=== PATIENT | female | born 1950 | race Hispanic/Latino ===

== ENCOUNTER 2016-12-11 17:29 | Emergency (ER) | payer OTHER ==
[2016-12-11 17:29] VITALS: BMI 37.8
[2016-12-11 17:36] VITALS: RESP 20; TEMP 98.1; O2SAT 100
[2016-12-11 18:06] LABS: RBC URINE < 1 /hpf (0-3); URINE BACTERIA RARE (<OCC); URINE BILIRUBIN NEGATIVE (NEGATIVE); URINE BLOOD NEGATIVE (NEGATIVE); URINE COLOR YELLOW (YELLOW); URINE GLUCOSE (UA) NEG (Normal); URINE KETONE NEGATIVE (NEGATIVE); URINE LEUKOCYTE ESTERASE NEG Leu/uL (Negative); URINE PROTEIN NEGATIVE (NEGATIVE); URINE UROBILINOGEN 0.2-1.0 mg/dL (0.2-1.0)
--- NOTE | 2016-12-11 18:08 | ED PDOC ---
HPI: Back Time Seen by Provider: 12/11/16 17:36 Chief Complaint (Nursing): Abdominal Pain Chief Complaint (Provider): Right Flank Pain History Per: Patient History/Exam Limitations: no limitations Onset/Duration Of Symptoms: Days (x1 week) Current Symptoms Are (Timing): Still Present Quality Of Discomfort: "Pain" (soreness) Severity: Moderate Associated Symptoms: Other (initially mild dysuria, today shortness of breath; no hematuria/frequency) Exacerbating Factor(s): Movement (w/certain movements of back) Additional Complaint(s): Bia Richardson is a 66 year old female, with a past medical history inclusive of HTN, hypercholesterolemia and type II diabetes, who presents to the ED on 12/11/16 for the evaluation of moderate right flank pain/soreness that she has experienced x1 week; worse with certain movements of her back. Associated dysuria also reported initially, though she denies hematuria, urinary frequency, fever, chills or GI symptoms. ED visit was prompted today after patient begun to experience shortness of breath. Patient was evaluated by her PMD for these complaints who had then prescribed her Cipro for possible kidney infection/UTI; taken with only mild improvement in pain. No prior history of kidney stones. Of note, patient also reports that she has been moving this past week, pain may possibly be related to a muscular/back strain. PMD: Teto Mustafa Past Medical History Reviewed: Historical Data, Nursing Documentation, Vital Signs Vital Signs: Last Vital Signs Temp 98.1 F 12/11/16 17:31 Pulse 99 H 12/11/16 17:31 Resp 20 12/11/16 17:31 BP 155/111 H 12/11/16 17:31 Pulse Ox 100 12/11/16 17:31 - Medical History PMH: Diabetes (type II), Diverticulitis, Gall Bladder Disease (cholecystectomy) , HTN, Hypercholesterolemia Denies: Deep Vein Thrombosis, Chronic Kidney Disease - Surgical History Surgical History: Cholecystectomy - Family History Family History: States: Unknown Family Hx - Home Medications Home Medications: Ambulatory Orders Medication Instructions Recorded Atorvastatin [Lipitor] 10 mg PO HS 06/29/16 Ranitidine HCl [Zantac] 150 mg PO DAILY 06/29/16 metFORMIN [glucOPHAGE] 500 mg PO BID 06/29/16 Lidocaine 5% [Lidoderm] 1 ea TD DAILY PRN #10 patch 12/11/16 traMADol [Ultram] 50 mg PO TID PRN 3 Days 12/11/16 - Allergies Allergies/Adverse Reactions: Allergies Allergy/AdvReac Type Severity Reaction Status Date / Time peanut Allergy RASH Verified 06/29/16 12:11 Sulfa (Sulfonamide Allergy RASH Verified 06/29/16 12:11 Antibiotics) latex AdvReac RASH Verified 06/29/16 12:11 apple juice Allergy RASH Uncoded 06/29/16 12:11 blueberries Allergy RASH Uncoded 06/29/16 12:11 raspberries Allergy RASH Uncoded 06/29/16 12:11 shellfish Allergy RASH Uncoded 06/29/16 12:11 strawberries Allergy RASH Uncoded 06/29/16 12:11 tuna Allergy RASH Uncoded 06/29/16 12:11 Review of Systems ROS Statement: Except As Marked, All Systems Reviewed And Found Negative Constitutional: Negative for: Fever, Chills Gastrointestinal: Negative for: Nausea, Vomiting, Abdominal Pain, Diarrhea Genitourinary Female: Positive for: Dysuria (initially). Negative for: Frequency, Hematuria Musculoskeletal: Positive for: Back Pain (right flank pain/soreness, worse w/ certain movements of back) Physical Exam - Reviewed Nursing Documentation Reviewed: Yes Vital Signs Reviewed: Yes - Physical Exam Appears: Positive for: Non-toxic, In Acute Distress (minimal painful distress) Head Exam: Positive for: ATRAUMATIC, NORMOCEPHALIC Skin: Positive for: Normal Color, Warm, Dry, Rash (isolated 3.0cm x 2.0cm irregular, erythematous/macuopapular rash noted on skin of lower fold of right flank; patient denies pain at site) Neck: Positive for: Normal, Painless ROM, Supple Cardiovascular/Chest: Positive for: Regular Rate, Rhythm, Edema (trace b/l LE). Negative for: Murmur Respiratory: Positive for: Normal Breath Sounds. Negative for: Respiratory Distress Gastrointestinal/Abdominal: Positive for: Soft, Other (abdomen is protuberant/ obese). Negative for: Tenderness, Mass, Guarding, Rebound Back: Positive for: Other (mild tenderness to right paraspinal/thoracic region to deep palpation). Negative for: L CVA Tenderness, R CVA Tenderness Extremity: Positive for: Normal ROM Neurologic/Psych: Positive for: Alert, Oriented - Laboratory Results Result Diagrams: 12/11/16 18:09 12/11/16 18:09 Urine dip results: Negative for: Leukocyte Esterase, Blood, Nitrate, Ketones, Glucose, Bilirubin, Protein - ECG O2 Sat by Pulse Oximetry: 100 (RA) Pulse Ox Interpretation: Normal - CT Scan/US CT A/P w/o contrast Other Rad Studies (CT/US): Read By Radiologist, Radiology Report Reviewed Other Rad Interpretation: see MDM Medical Decision Making Medical Decision Makin:36 Initial Impression: right flank pain Differential diagnoses include but are not limited to kidney stone, pyelonephritis. Patient is hypertensive in ED (155/117) with mildly elevated pulse. Initial Plan: * CT A/P w/o contrast * Labs * BNP * Magnesium * Phosphorus * Troponin I * D-Dimer * Glucose/Blood/POC * Urinalysis * Urine Culture * Reevaluation 19:37 CT A/P report reviewed: FINDINGS: Lower thorax: No acute findings. ABDOMEN: Liver: There is fatty infiltration of the liver. Gallbladder and bile ducts: Unremarkable. No calcified stones. No ductal dilation. Pancreas: Unremarkable. No ductal dilation. Spleen: Unremarkable. No splenomegaly. Adrenals: Unremarkable. No mass. Kidneys and ureters: Unremarkable. No obstructing stones. No hydronephrosis. Stomach and bowel: Surgical sutures are noted in the sigmoid colon. There is mild localized dilatation of the sigmoid colon loop adjacent to the sutures, as described at the report of CT dated 10/23/2016 No mucosal thickening. Appendix: No findings to suggest acute appendicitis. PELVIS: Bladder: Unremarkable. No stones. Reproductive: Unremarkable as visualized. ABDOMEN and PELVIS: Intraperitoneal space: Unremarkable. No free air. No significant fluid collection Bones/joints: No acute fracture. No dislocation. Soft tissues: There is new moderate left lower quadrant abdominal wall hernia containing fat. Vasculature: Unremarkable. No abdominal aortic aneurysm. Lymph nodes: Unremarkable. No enlarged lymph nodes. IMPRESSION: New left lower quadrant abdominal wall hernia containing fat since prior exam. Additional nonacute findings as above. Scribe Attestation: Documented by Meera Rebollar, acting as a scribe for Dipti Garibay MD. Provider Scribe Attestation: All medical record entries made by the Scribe were at my direction and personally dictated by me. I have reviewed the chart and agree that the record accurately reflects my personal performance of the history, physical exam, medical decision making, and the department course for this patient. I have also personally directed, reviewed, and agree with the discharge instructions and disposition. Disposition - Clinical Impression Clinical Impression: Back pain Counseled Patient/Family Regarding: Studies Performed, Diagnosis, Need For Followup, Rx Given - Disposition Referrals: Teto Mustafa MD [Family Provider] - 12/13/16 Disposition: Routine/Home Disposition Time: 20:00 Condition: GOOD Prescriptions: Lidocaine 5% [Lidoderm] 1 ea TD DAILY PRN #10 patch PRN Reason: PAIN traMADol [Ultram] 50 mg PO TID PRN 3 Days PRN Reason: SEVERE PAIN ONLY Instructions: Flank Pain (ED)
[2016-12-11 18:13] LABS: BASO # 0.1 K/uL (0.0-0.2); BASO % 0.6 % (0.0-2.0); EOS # 0.4 K/uL (0.0-0.7); EOS % 2.6 % (0.0-4.0); HEMATOCRIT 44.2 % (34.0-47.0); LYMPH # 2.6 K/uL (1.0-4.3); LYMPH % 17.9 % (20.0-40.0); MEAN CELL VOLUME 86.9 fl (81.0-99.0); MEAN CORPUSCULAR HEMOGLOBIN 28.5 pg (27.0-31.0); MEAN CORPUSCULAR HGB CONC 32.8 g/dL (33.0-37.0); MEAN PLATELET VOLUME 8.2 fl (7.2-11.7); MONO # 0.9 K/uL (0.0-0.8); MONO % 6.3 % (0.0-10.0); NEUT # 10.7 K/uL (1.8-7.0); NEUT % 72.6 % (50.0-75.0); RED CELL DISTRIBUTION WIDTH 14.5 % (11.5-14.5); WHITE BLOOD COUNT 14.8 K/uL (4.8-10.8)
[2016-12-11 19:21] LABS: ALKALINE PHOSPHATASE 90 U/L (38-126); ALT/SGPT 28 U/L (9-52); AST/SGOT 68 U/L (14-36); BILIRUBIN,TOTAL 0.7 mg/dl (0.2-1.3); BLOOD UREA NITROGEN 25 mg/dl (7-17); CALCIUM 9.9 mg/dL (8.4-10.2); CARBON DIOXIDE 23 mmol/L (22-30); CHLORIDE 102 mmol/L (98-107); GFR AFRICAN-AMERICAN > 60; GLUCOSE,RANDOM 110 mg/dL (65-105); POTASSIUM 4.7 MMOL/L (3.6-5.0); SODIUM 141 mmol/l (132-148); TOTAL PROTEIN 8.1 G/DL (6.3-8.2)
[2016-12-11 20:31] VITALS: BP 109/75; PULSE 95
--- NOTE | 2016-12-12 08:43 | CT ---
PROCEDURE: CT Abdomen and Pelvis without intravenous contrast HISTORY: RIGHT flank pain COMPARISON: 10/23/2016 TECHNIQUE: Without contrast.. Contrast Dose: 0 Radiation dose: Total exam DLP = 1028.56 mGy-cm. This CT exam was performed using one or more of the following dose reduction techniques: Automated exposure control, adjustment of the mA and/or kV according to patient size, and/or use of iterative reconstruction technique. FINDINGS: LOWER THORAX: Unremarkable. LIVER: Heterogeneous diffuse fatty infiltration. No mass. No biliary dilatation. Smooth contour. GALLBLADDER AND BILE DUCTS: Status post cholecystectomy PANCREAS: Unremarkable. No gross lesion or ductal dilatation. SPLEEN: Unremarkable. ADRENALS: Unremarkable. No mass. KIDNEYS AND URETERS: Unremarkable. No hydronephrosis. No solid mass. VASCULATURE: Unremarkable. No aortic aneurysm. BOWEL: Anastomotic sutures identified in sigmoid colon with mild focal dilatation unchanged from prior examination. Small blind pouch identified at the level of the anastomosis. Diverticulosis of the transverse colon without evidence of diverticulitis. No bowel obstruction. No other abnormal bowel loops are identified. APPENDIX: Unremarkable. Normal appendix. PERITONEUM: No ascites. Left anterior abdominal wall hernia containing mesenteric fat. Unchanged from prior examination. No herniated bowel. LYMPH NODES: Unremarkable. No enlarged lymph nodes. BLADDER: Nondistended REPRODUCTIVE: Postmenopausal uterus BONES: No fracture. Grade 1 anterolisthesis at L4-5 without spondylolysis. Multilevel degenerative facet arthropathy in lower lumbar spine. OTHER FINDINGS: None. IMPRESSION: No evidence of urinary calculus or urinary tract obstruction. Fatty liver. Status post cholecystectomy. Left anterior abdominal wall ventral hernia containing only mesenteric fat. Additional minor findings as above. Preliminary interpretation of this examination was reported by [employer] at 7:37 p.m. on 12/11/2016. There is concurrence of this report with the preliminary interpretation.
--- NOTE | 2016-12-12 09:02 | CARD ---
APPROVED REPORT EKG Measurement Heart [id number] <Conclusion> Normal sinus rhythm Low voltage QRS Borderline ECG
== END 2016-12-11 20:39 | disposition home or self-care (01) ==
LOC: H.ER 17:29
DX: R10.9 Unspecified abdominal pain (principal); E11.9 Type 2 diabetes mellitus without complications; E78.00 Pure hypercholesterolemia, unspecified; I10 Essential (primary) hypertension; Z79.84 Long term (current) use of oral hypoglycemic drugs; Z90.49 Acquired absence of other specified parts of digestive tract

== ENCOUNTER 2017-02-05 03:14 | Inpatient (IN) | payer MEDICARE, OTHER ==
[2017-02-05] MEDS ORDERED: Albuterol-Ipratrop 3 mg / 0.5 (3 ml) UD INH STA ×2 (03:46→03:47)
[2017-02-05] MEDS ORDERED: Albuterol-Ipratrop 3 mg / 0.5 (3 ml) UD ONE (03:47)
[2017-02-05 04:19] LABS: ABG ALLEN TEST YES; ARTERIAL BLOOD GAS HCO3 25.5 mmol/L (21-28); ARTERIAL BLOOD GAS PH 7.36 (7.35-7.45); ARTERIAL BLOOD GAS PO2 96 mm/Hg (80-100)
[2017-02-05 04:23] LABS: BASO % 0.1 % (0.0-2.0); EOS # 0.5 K/uL (0.0-0.7); EOS % 3.4 % (0.0-4.0); HEMATOCRIT 42.2 % (34.0-47.0); LYMPH # 1.9 K/uL (1.0-4.3); LYMPH % 13.8 % (20.0-40.0); MEAN CELL VOLUME 86.8 fl (81.0-99.0); MEAN CORPUSCULAR HEMOGLOBIN 29.2 pg (27.0-31.0); MEAN CORPUSCULAR HGB CONC 33.7 g/dL (33.0-37.0); MEAN PLATELET VOLUME 8.8 fl (7.2-11.7); MONO # 0.8 K/uL (0.0-0.8); MONO % 5.7 % (0.0-10.0); NEUT # 10.8 K/uL (1.8-7.0); NRBC % 0.2 % (0.0-0.0); RED CELL DISTRIBUTION WIDTH 14.2 % (11.5-14.5)
[2017-02-05 04:31] LABS: BLOOD UREA NITROGEN 16 mg/dl (7-17); CALCIUM 8.6 mg/dL (8.4-10.2); CARBON DIOXIDE 23 mmol/L (22-30); CHLORIDE 101 mmol/L (98-107); GFR AFRICAN-AMERICAN > 60; GLUCOSE,RANDOM 330 mg/dL (65-105); POTASSIUM 4.6 MMOL/L (3.6-5.0); SODIUM 136 mmol/l (132-148)
--- NOTE | 2017-02-05 04:44 | ED PDOC ---
HPI: SOB/CHF/COPD Time Seen by Provider: 02/05/17 03:30 Chief Complaint (Nursing): Shortness Of Breath Chief Complaint (Provider): Shortness of Breath History Per: Patient History/Exam Limitations: no limitations Current Symptoms Are (Timing): Better Associated Symptoms: Productive Cough ((+)dry cough). denies: Fever Additional Complaint(s): 67 y/o female patient presenting to the ED with shortness of breath. Patient states she has seasonal allergies and her apartment is surrounded by pollen. PT states she was wheezing, had shortness of breath, sore throat, dry cough and was sneezing all day. Patient states she never had asthma or COPD. Patient has a past medical history of hypertension. PT was given a nebulizer treatment in the ambulance in route to the ED and states she is feeling better. Past Medical History Reviewed: Historical Data, Nursing Documentation, Vital Signs Vital Signs: Last Vital Signs Temp 99 F 02/05/17 05:57 Pulse 112 H 02/05/17 05:57 Resp 18 02/05/17 05:57 BP 152/94 H 02/05/17 05:57 Pulse Ox 95 02/05/17 05:57 - Medical History PMH: Diabetes (type II), Diverticulitis, Gall Bladder Disease (cholecystectomy) , HTN, Hypercholesterolemia Denies: Deep Vein Thrombosis, Chronic Kidney Disease - Surgical History Surgical History: Cholecystectomy - Family History Family History: States: Unknown Family Hx - Home Medications Home Medications: Ambulatory Orders Medication Instructions Recorded Atorvastatin [Lipitor] 10 mg PO HS 06/29/16 Ranitidine HCl [Zantac] 150 mg PO DAILY 06/29/16 metFORMIN [glucOPHAGE] 500 mg PO BID 06/29/16 Lidocaine 5% [Lidoderm] 1 ea TD DAILY PRN #10 patch 12/11/16 traMADol [Ultram] 50 mg PO TID PRN 3 Days 12/11/16 - Allergies Allergies/Adverse Reactions: Allergies Allergy/AdvReac Type Severity Reaction Status Date / Time peanut Allergy RASH Verified 02/05/17 03:21 Sulfa (Sulfonamide Allergy RASH Verified 02/05/17 03:21 Antibiotics) latex AdvReac RASH Verified 02/05/17 03:21 apple juice Allergy RASH Uncoded 06/29/16 12:11 blueberries Allergy RASH Uncoded 06/29/16 12:11 raspberries Allergy RASH Uncoded 06/29/16 12:11 shellfish Allergy RASH Uncoded 06/29/16 12:11 strawberries Allergy RASH Uncoded 06/29/16 12:11 tuna Allergy RASH Uncoded 06/29/16 12:11 Review of Systems ROS Statement: Except As Marked, All Systems Reviewed And Found Negative Constitutional: Negative for: Fever, Weakness ENT: Positive for: Throat Pain (sore throat), Other ((+)Sneezing) Respiratory: Positive for: Cough ((+)dry cough ), Shortness of Breath, Wheezing. Negative for: SOB with Exertion Gastrointestinal: Negative for: Nausea, Vomiting Physical Exam - Reviewed Nursing Documentation Reviewed: Yes Vital Signs Reviewed: Yes - Physical Exam Appears: Positive for: Non-toxic, No Acute Distress Head Exam: Positive for: ATRAUMATIC, NORMAL INSPECTION, NORMOCEPHALIC Skin: Positive for: Normal Color, Warm Eye Exam: Positive for: Normal appearance, EOMI, PERRL Cardiovascular/Chest: Positive for: Regular Rate, Rhythm. Negative for: Murmur Respiratory: Positive for: Normal Breath Sounds, Wheezing ((+)Bilateral minimal wheezing expiratory). Negative for: Respiratory Distress Extremity: Positive for: Normal ROM Neurologic/Psych: Positive for: Alert, Oriented. Negative for: Motor/Sensory Deficits - Laboratory Results Result Diagrams: 02/05/17 04:05 02/05/17 04:05 - ECG O2 Sat by Pulse Oximetry: 98 (RA) Pulse Ox Interpretation: Normal Nebulizer Treatments/Peak Flow - Clinical Response Clinical Response: Improved Medical Decision Making Medical Decision Making: Time: 034 Initial impression: POLLEN MEDIATING BRONCHOSPASM Initial plan: --EKG -- B-TYPE NATRIUETIC PEPTIDE --BMP --TROPONIN I --EKG-ED --CHEST XRAY ONE VIEW --ALBUTEROL/IPRATROPIUM 3MG --ALBUTEROL/IPRATROPIUM 3MG --METHYLPREDNISOLONE 125MG IVP --PEAK FLOW PRE/POST TX 7AM: Patient is feeling much better, wheezing much improved, breathing unlabored. Pt. still remains tachycardic likely because of nebulizer treatments , will repeat lactate after 500cc bolus and likely discharge, will sign out do Dr. Garcia pending repeat lactate, FS, and HR. Scribe Attestation: Documented by Milena Encampment, acting as a scribe for Garcia Wendy, MD MD Scribe Attestation: All medical record entries made by the Scribe were at my direction and personally dictated by me. I have reviewed the chart and agree that the record accurately reflects my personal performance of the history, physical exam, medical decision making, and the department course for this patient. I have also personally directed, reviewed, and agree with the discharge instructions and disposition. Disposition - Clinical Impression Clinical Impression: Bronchospasm - Patient ED Disposition Is Patient to be Admitted: Transfer of Care - Disposition Disposition: Transfer of Care Disposition Time: 07:00 Condition: STABLE Patient Signed Over To: Norman Garcia Jr. Handoff Comments: pending repeat lactate, recheck of HR and FS.
[2017-02-05] MEDS ORDERED: Insulin Regular 100 units/ml SC STA (04:57)
[2017-02-05] MEDS ORDERED: Insulin Regular 100 units/ml ONE (05:45)
[2017-02-05] MEDS ORDERED: Sodium Chloride 0.9% 1,000 ML IV STA (05:50)
--- NOTE | 2017-02-05 07:28 | ED PDOC ---
- Laboratory Results Result Diagrams: 02/05/17 04:05 02/05/17 04:05 - ECG O2 Sat by Pulse Oximetry: 98 (RA) Pulse Ox Interpretation: Normal Medical Decision Making Medical Decision Making: Receiving Sign Out: Patient signed out to me by Dr. Nguyen pending repeat lactate, FS and HR. Scribe Attestation: Documented by Peyton Echeverria acting as a scribe for Norman Garcia DO. Provider Attestation: All medical record entries made by the Scribe were at my direction and personally dictated by me. I have reviewed the chart and agree that the record accurately reflects my personal performance of the history, physical exam, medical decision making, and the department course for this patient. I have also personally directed, reviewed, and agree with the discharge instructions and disposition. Disposition Counseled Patient/Family Regarding: Studies Performed, Diagnosis - Clinical Impression Clinical Impression: Bronchospasm, Pneumonia, Severe sepsis - POA Present On Arrival: None - Disposition Disposition: Admitted as In-Patient Disposition Time: 08:38 Condition: STABLE Progress Note - Review of Symptoms Events since last encounter: Patient's repeat lactate has gone up, and when off of oxygen, her O2 Sat drops by 10 points. Will admit for pneumonia/severe sepsis.
[2017-02-05] MEDS ORDERED: cefTRIAXone 1,000 MG in PED IV SYRINGE 1 SYR IVPB STA (08:22)
[2017-02-05] MEDS ORDERED: Azithromycin 500 MG in Sodium Chloride 0.9% 250 ML IVPB STA (08:23)
[2017-02-05] MEDS ORDERED: cefTRIAXone (Rocephin) 1 gm Inj ONE (09:28)
--- NOTE | 2017-02-05 09:40 | RAD ---
PROCEDURE: CHEST RADIOGRAPH, 1 VIEW HISTORY: sob COMPARISON: 06/29/2016 FINDINGS: LUNGS: Hazy opacity in the right cardiophrenic angle. This could represent atelectasis. PLEURA: No pneumothorax or pleural fluid seen.Biapical pleural parenchymal thickening noted. CARDIOVASCULAR: Enlarged cardiomediastinal silhouette. OSSEOUS STRUCTURES: The osseous structures demonstrate degenerative changes. VISUALIZED UPPER ABDOMEN: Upper abdomen is suboptimally evaluated. OTHER FINDINGS: None. IMPRESSION: New hazy opacity in the right cardiophrenic angle, or suboptimally seen and could represent atelectasis. PA lateral chest radiographs recommended
--- NOTE | 2017-02-05 12:42 | CARD ---
APPROVED REPORT EKG Measurement Heart [id number] <Conclusion> Sinus tachycardia Low voltage QRS Borderline ECG
[2017-02-05] MEDS ORDERED: Pneumococcal 23-Valent Vaccine IM ONE (16:34)
[2017-02-05] MEDS: Benzocaine/Menthol (Cepacol) Lozenge PO PRN (20:41)
[2017-02-06] MEDS: Promethazine 6.25 MG/5 ML CUP PO PRN ×3 (00:24→23:46)
[2017-02-06 08:16] LABS: HEMATOCRIT 42.1 % (34.0-47.0); MEAN CELL VOLUME 87.9 fl (81.0-99.0); MEAN CORPUSCULAR HEMOGLOBIN 28.7 pg (27.0-31.0); MEAN CORPUSCULAR HGB CONC 32.7 g/dL (33.0-37.0); RED CELL DISTRIBUTION WIDTH 14.6 % (11.5-14.5); WHITE BLOOD COUNT 17.3 K/uL (4.8-10.8)
[2017-02-06] MEDS: Benzocaine/Menthol (Cepacol) Lozenge PO PRN ×2 (08:21→17:22)
[2017-02-06] MEDS: Enoxaparin 40 mg Syringe SC SCH (08:22)
[2017-02-06] MEDS: Azithromycin 500 MG in Sodium Chloride 0.9% 250 ML IVPB SCH (08:28)
[2017-02-06 08:37] LABS: ALB/GLOB RATIO 1.2 (1.0-2.1); ALKALINE PHOSPHATASE 83 U/L (38-126); ALT/SGPT 46 U/L (9-52); AST/SGOT 41 U/L (14-36); BILIRUBIN,TOTAL 0.6 mg/dl (0.2-1.3); BLOOD UREA NITROGEN 16 mg/dl (7-17); CARBON DIOXIDE 30 mmol/L (22-30); CHLORIDE 99 mmol/L (98-107); GFR AFRICAN-AMERICAN > 60; GLUCOSE,RANDOM 156 mg/dL (65-105); POTASSIUM 4.2 MMOL/L (3.6-5.0); SODIUM 140 mmol/l (132-148); TOTAL PROTEIN 7.9 G/DL (6.3-8.2)
[2017-02-06 12:19] VITALS: BMI 46.3
--- NOTE | 2017-02-07 06:25 | HP ---
CHIEF COMPLAINT: Coughing and fever. HISTORY OF PRESENT ILLNESS: This is an elderly female, known case of diabetes, hypertension, morbid obesity and arthritis who was having cough and fever, generalized malaise for a few days, but did not get better, so patient was brought to Emergency Room and was admitted for further management. REVIEW OF SYSTEMS: Positive for cough, fever, malaise, generalized weakness, sputum production. Rev iew of systems otherwise is negative for headache, dizziness, syncope, loss of consciousness, chest p ain, nausea, vomiting, diarrhea, constipation, any new joint or extremity pain. Review of systems of all other organ systems is unremarkable. PAST MEDICAL HISTORY: Significant for hypertension, diabetes, elevated cholesterol, morbid obesity, osteoarthritis. PAST SURGICAL HISTORY: Unremarkable. PERSONAL HISTORY: The patient is nonsmoker, nondrinker. No substance abuse. ALLERGIES: The patient is not allergic to any medications. MEDICATIONS: The patient is on multiple medications ____ which was reviewed in order. FAMILY HISTORY: Noncontributory. PHYSICAL EXAMINATION: GENERAL: Well-built, well-nourished, morbidly obese female in no acute distress. VITAL SIGNS: Temperature afebrile, pulse 80, respirations 18, blood pressure 140/80. HEENT AND NECK: Pupils reacting to light. Neck no JVD, no thyromegaly, no lymphadenopathy, no nysta gmus. Normocephalic, atraumatic skull. HEART: S1, S2 normal, regular. No significant murmur, gallop or rub is heard. LUNGS: ____ good bilateral air exchange. Occasional crepitation. No wheezing. ABDOMEN: Soft, nontender. No organomegaly. No fluid. Bowel sounds are plus. EXTREMITIES: No edema, no calf swelling, no tenderness, no acute ischemia. CENTRAL NERVOUS SYSTEM: Essentially unchanged from patient's usual exam and there is no sign of any acute gross focal motor or sensory neurological deficit. DIAGNOSTIC DATA: Available diagnostic data reviewed. Lactic acid ____ . WBC is elevated at 14.2. ADMITTING IMPRESSION: ____ sepsis, pneumonia, type 2 diabetes with hyperglycemia, hypertension, morb id obesity, elevated cholesterol, osteoarthritis. PLAN: As ordered. Case and plan discussed with patient. Teto Mustafa MD cc: [id number] TT: 02/05/2017 20:33:53 rn
[2017-02-07 06:48] LABS: HEMATOCRIT 41.1 % (34.0-47.0); MEAN CELL VOLUME 88.3 fl (81.0-99.0); MEAN CORPUSCULAR HEMOGLOBIN 28.7 pg (27.0-31.0); MEAN CORPUSCULAR HGB CONC 32.5 g/dL (33.0-37.0); RED CELL DISTRIBUTION WIDTH 14.3 % (11.5-14.5); WHITE BLOOD COUNT 12.1 K/uL (4.8-10.8)
[2017-02-07 06:54] LABS: ALB/GLOB RATIO 1.2 (1.0-2.1); ALKALINE PHOSPHATASE 78 U/L (38-126); ALT/SGPT 46 U/L (9-52); AST/SGOT 32 U/L (14-36); BILIRUBIN,TOTAL 0.4 mg/dl (0.2-1.3); BLOOD UREA NITROGEN 22 mg/dl (7-17); CALCIUM 8.8 mg/dL (8.4-10.2); CARBON DIOXIDE 31 mmol/L (22-30); CHLORIDE 99 mmol/L (98-107); GFR AFRICAN-AMERICAN > 60; GLUCOSE,RANDOM 126 mg/dL (65-105); POTASSIUM 4.2 MMOL/L (3.6-5.0); SODIUM 139 mmol/l (132-148)
--- NOTE | 2017-02-07 08:25 | PN ---
DATE: 02/06/2017 Yesterday, this patient's dictation was done for history and physical, and a different account number . If you can, please fix it. Account number used was [id number]. There were two 3s by mistake. If you can, please fix that. SUBJECTIVE: The patient is seen and examined. Interim events noted. The patient feels much better, cough, chest pain, and shortness of breath improved. PHYSICAL EXAMINATION: GENERAL: The patient is in no acute distress. VITAL SIGNS: Stable. HEART: S1, S2 normal, regular. LUNGS: Improved bilateral air exchange, questionable ____ present, partially cleared with coughing. ABDOMEN: Soft, nontender. No organomegaly. No fluid. Bowel sounds are plus. EXTREMITIES: No edema, no calf swelling, no tenderness. No acute ischemia. CENTRAL NERVOUS SYSTEM: Essentially unchanged. DIAGNOSTIC DATA: Available diagnostic data reviewed. Overall, the patient's general medical condition is slowly improving. PLAN: As ordered. Teto Mustafa MD cc: [id number] TT: 02/06/2017 09:18:01 Confirmation # [id number] Dictation # [id number] [place]
[2017-02-07] MEDS: Benzocaine/Menthol (Cepacol) Lozenge PO PRN ×2 (09:04→16:04)
[2017-02-07] MEDS: Enoxaparin 40 mg Syringe SC SCH (09:05)
[2017-02-07] MEDS: Azithromycin 500 MG in Sodium Chloride 0.9% 250 ML IVPB SCH (09:07)
--- NOTE | 2017-02-07 09:37 | PN ---
DATE: 02/07/2017 The patient seen and examined. Interim events noted. The patient feels better, still has cough and congestion. No chest pain or shortness of breath. PHYSICAL EXAMINATION: GENERAL: The patient is in no acute distress. VITAL SIGNS: Stable. HEART: S1, S2 normal, regular. LUNGS: Good bilateral air exchange. ABDOMEN: Soft, nontender. EXTREMITIES: No edema, no calf swelling, no tenderness, no acute ischemia. CENTRAL NERVOUS SYSTEM: Essentially unchanged. DIAGNOSTIC DATA: Available reviewed. WBC count is down to 12. Telemetry monitoring does not reveal significant arrhythmia. Overall, patient is slowly improving. PLAN: As ordered. Teto Mustafa MD cc: [id number] TT: 02/07/2017 09:36:46 Confirmation # [id number] Dictation # [id number]
[2017-02-07] MEDS: Promethazine 6.25 MG/5 ML CUP PO PRN (21:45)
[2017-02-07] MEDS: Promethazine/Cod 6.25mg-10mg/5ml Syr UD PO PRN (23:45)
[2017-02-08 06:51] LABS: HEMATOCRIT 41.3 % (34.0-47.0); MEAN CORPUSCULAR HEMOGLOBIN 28.5 pg (27.0-31.0); MEAN CORPUSCULAR HGB CONC 32.4 g/dL (33.0-37.0); RED CELL DISTRIBUTION WIDTH 13.9 % (11.5-14.5); WHITE BLOOD COUNT 12.3 K/uL (4.8-10.8)
[2017-02-08 07:35] LABS: ALB/GLOB RATIO 1.1 (1.0-2.1); ALKALINE PHOSPHATASE 83 U/L (38-126); ALT/SGPT 45 U/L (9-52); AST/SGOT 31 U/L (14-36); BILIRUBIN,TOTAL 0.4 mg/dl (0.2-1.3); BLOOD UREA NITROGEN 16 mg/dl (7-17); CALCIUM 8.9 mg/dL (8.4-10.2); CARBON DIOXIDE 29 mmol/L (22-30); CHLORIDE 100 mmol/L (98-107); GFR AFRICAN-AMERICAN > 60; GLUCOSE,RANDOM 129 mg/dL (65-105); POTASSIUM 4.3 MMOL/L (3.6-5.0); SODIUM 139 mmol/l (132-148); TOTAL PROTEIN 6.9 G/DL (6.3-8.2)
[2017-02-08] MEDS: Enoxaparin 40 mg Syringe SC SCH (08:16)
[2017-02-08] MEDS: Azithromycin 500 MG in Sodium Chloride 0.9% 250 ML IVPB SCH (08:24)
[2017-02-08] MEDS: Promethazine/Cod 6.25mg-10mg/5ml Syr UD PO PRN (11:41)
[2017-02-08 12:13] VITALS: BP 123/72; PULSE 85; RESP 18; TEMP 97.9; O2SAT 92
[2017-02-08] MEDS ORDERED: Pneumococcal 23-Valent Vaccine IM ONE ×2 (13:01→13:30)
--- NOTE | 2017-02-08 13:36 | RAD ---
HISTORY: F/U PNA COMPARISON: 02/05/2017. TECHNIQUE: Chest PA and lateral FINDINGS: LUNGS: No active pulmonary disease. PLEURA: No significant pleural effusion identified. No pneumothorax apparent. CARDIOVASCULAR: No radiographic findings to suggest acute or significant cardiovascular disease. OSSEOUS STRUCTURES: No significant abnormalities. VISUALIZED UPPER ABDOMEN: Normal. OTHER FINDINGS: None. IMPRESSION: No active disease. Result right lower lobe infiltrate.
--- NOTE | 2017-02-08 16:59 | CP.PCM.DIS ---
Provider - Provider Date of Admission: 02/05/17 08:35 Attending physician: Teto Mustaaf MD Time Spent in preparation of Discharge (in minutes): 30 Diagnosis - Discharge Diagnosis (1) Pneumonia Status: Acute Hospital Course - Lab Results Lab Results: Micro Results 02/05/17 09:00 Blood Blood Culture - Preliminary NO GROWTH AFTER 3 DAYS Most Recent Lab Values WBC 12.3 K/uL (4.8-10.8) H 02/08/17 05:50 RBC 4.69 Mil/uL (3.80-5.20) 02/08/17 05:50 Hgb 13.4 g/dL (12.0-16.0) 02/08/17 05:50 Hct 41.3 % (34.0-47.0) 02/08/17 05:50 MCV 88.0 fl (81.0-99.0) 02/08/17 05:50 MCH 28.5 pg (27.0-31.0) 02/08/17 05:50 MCHC 32.4 g/dL (33.0-37.0) L 02/08/17 05:50 RDW 13.9 % (11.5-14.5) 02/08/17 05:50 Plt Count 248 K/uL (130-400) 02/08/17 05:50 MPV 8.8 fl (7.2-11.7) 02/05/17 04:05 Neut % (Auto) 77.0 % (50.0-75.0) H 02/05/17 04:05 Lymph % (Auto) 13.8 % (20.0-40.0) L 02/05/17 04:05 [place] % (Auto) 5.7 % (0.0-10.0) 02/05/17 04:05 Eos % (Auto) 3.4 % (0.0-4.0) 02/05/17 04:05 Baso % (Auto) 0.1 % (0.0-2.0) 02/05/17 04:05 Neut # 10.8 K/uL (1.8-7.0) H 02/05/17 04:05 Lymph # 1.9 K/uL (1.0-4.3) 02/05/17 04:05 Redwood # 0.8 K/uL (0.0-0.8) 02/05/17 04:05 Eos # 0.5 K/uL (0.0-0.7) 02/05/17 04:05 Baso # 0.0 K/uL (0.0-0.2) 02/05/17 04:05 pCO2 48 mm/Hg (35-45) H 02/05/17 03:47 pO2 96 mm/Hg (80-100) 02/05/17 03:47 HCO3 25.5 mmol/L (21-28) 02/05/17 03:47 ABG pH 7.36 (7.35-7.45) 02/05/17 03:47 ABG Total CO2 28.6 mmol/L (22-28) H 02/05/17 03:47 ABG O2 Saturation 99.8 % (95-98) H 02/05/17 03:47 ABG Base Excess 0.9 mmol/L (-2.0-3.0) 02/05/17 03:47 Theo Test Yes 02/05/17 03:47 ABG Potassium 4.4 mmol/L (3.6-5.2) 02/05/17 03:47 A-a O2 Difference 44.0 mm/Hg 02/05/17 03:47 Sodium 135.0 mmol/L (132-148) 02/05/17 03:47 Chloride 101.0 mmol/L (98-107) 02/05/17 03:47 Glucose 318 mg/dL (65-105) H 02/05/17 03:47 Lactate 2.5 mmol/L (0.7-2.1) H 02/05/17 03:47 FiO2 28.0 % 02/05/17 03:47 Sodium 139 mmol/l (132-148) 02/08/17 05:50 Potassium 4.3 MMOL/L (3.6-5.0) 02/08/17 05:50 Chloride 100 mmol/L (98-107) 02/08/17 05:50 Carbon Dioxide 29 mmol/L (22-30) 02/08/17 05:50 Anion Gap 14 (10-20) 02/08/17 05:50 BUN 16 mg/dl (7-17) 02/08/17 05:50 Creatinine 0.7 mg/dL (0.7-1.2) 02/08/17 05:50 Est GFR ( Amer) > 60 02/08/17 05:50 Est GFR (Non-Af Amer) > 60 02/08/17 05:50 POC Glucose (mg/dL) 207 mg/dL (65-110) H 02/08/17 11:36 Random Glucose 129 mg/dL (65-105) H 02/08/17 05:50 Lactic Acid 2.4 MMOL/L (0.7-2.1) H 02/06/17 06:30 Calcium 8.9 mg/dL (8.4-10.2) 02/08/17 05:50 Total Bilirubin 0.4 mg/dl (0.2-1.3) 02/08/17 05:50 AST 31 U/L (14-36) 02/08/17 05:50 ALT 45 U/L (9-52) 02/08/17 05:50 Alkaline Phosphatase 83 U/L (38-126) 02/08/17 05:50 Troponin I < 0.0120 ng/mL (0.00-0.120) 02/06/17 09:00 NT-Pro-B Natriuret Pep 23.5 pg/ml (0-900) 02/05/17 04:05 Total Protein 6.9 G/DL (6.3-8.2) 02/08/17 05:50 Albumin 3.6 g/dL (3.5-5.0) 02/08/17 05:50 Globulin 3.3 gm/dL (2.2-3.9) 02/08/17 05:50 Albumin/Globulin Ratio 1.1 (1.0-2.1) 02/08/17 05:50 Arterial Blood Potassium 4.4 mmol/L (3.6-5.2) 02/05/17 03:47 - Hospital Course Hospital Course: 67 yo F with PMHx of DM, HTN, morbid obesity presented to ED with complaints of cough, dyspnea, fever, malaise for a few days without improvement. Patient was admitted to hospital due to RLL pneumonia and sepsis with lactate level of 2.5. Patient improved on antibiotics (rocephin/azithromycin). WBC improved. Afebrile. No complications throughout hospital course. Patient to continue antibiotics as outpatient and follow up later this week. ED precautions given. Discharge Exam - Head Exam Head Exam: ATRAUMATIC, NORMAL INSPECTION, NORMOCEPHALIC - Eye Exam Eye Exam: EOMI, Normal appearance - Respiratory Exam Respiratory Exam: NORMAL BREATHING PATTERN, UNREMARKABLE - Cardiovascular Exam Cardiovascular Exam: REGULAR RHYTHM, RRR, +S1, +S2 - GI/Abdominal Exam GI & Abdominal Exam: Normal Bowel Sounds, Soft, Unremarkable. absent: Tenderness Additional comments: morbid obesity - Extremities Exam Extremities exam: normal inspection - Neurological Exam Neurological exam: Alert, Oriented x3 - Psychiatric Exam Psychiatric exam: Normal Affect, Normal Mood - Skin Skin Exam: Dry, Intact, Normal Color, Warm Discharge Plan - Discharge Medications Prescriptions: ALPRAZolam [Xanax] 0.25 mg PO DAILY PRN #5 tab PRN Reason: Anxiety Benzocaine/Menthol [Cepacol Sore Throat] 1 yolis PO Q6H PRN #30 yolis PRN Reason: Sore Throat Cefpodoxime [Vantin] 200 mg PO Q12 #10 tab Famotidine [Pepcid] 20 mg PO DAILY #30 tab Lactobacillus Acidophilus [Bacid Acidophilus] 1 cap PO BID #10 cap Lisinopril [Zestril] 40 mg PO DAILY #30 tab Promethazine/Codeine [Phenergan/Codeine Oral Syrup] 5 ml PO Q6 PRN #14 PRN Reason: Cough - Follow Up Plan Condition: STABLE Disposition: HOME/ ROUTINE Additional Instructions: patient cleared for discharge to Home today by Rx for meds provided ( see reconciliation) pt. will f/u with PMD in 1 week Referrals: Teto Mustafa MD [Staff Provider] -
== END 2017-02-08 14:23 | disposition home or self-care (01) | DRG 871 ==
LOC: H.ER 03:14 → H.ERHOLD 08:35 → H.TEL 12:38
PROVIDERS: ADMIT Internal Medicine; ATTEND Internal Medicine
PROC: 3E0F73Z Introduction of Anti-inflammatory into Respiratory Tract, Via Natural or Artificial Opening (ICD-10-PCS; principal; 2017-02-05)
PROC: 3E0234Z Introduction of Serum, Toxoid and Vaccine into Muscle, Percutaneous Approach (ICD-10-PCS; 2017-02-08)
DX: A41.9 Sepsis, unspecified organism (principal); J18.9 Pneumonia, unspecified organism; R65.20 Severe sepsis without septic shock; E11.65 Type 2 diabetes mellitus with hyperglycemia; Z68.42 Body mass index [BMI] 45.0-49.9, adult; E66.01 Morbid (severe) obesity due to excess calories; I10 Essential (primary) hypertension; E78.00 Pure hypercholesterolemia, unspecified; M19.90 Unspecified osteoarthritis, unspecified site; Z23 Encounter for immunization; Z88.2 Allergy status to sulfonamides; Z91.040 Latex allergy status; Z91.010 Allergy to peanuts

== ENCOUNTER 2017-09-01 01:12 | Emergency (ER) | payer MEDICARE, OTHER ==
[2017-09-01 01:12] VITALS: BMI 46.3
[2017-09-01] MEDS ORDERED: Albuterol-Ipratrop 3 mg / 0.5 (3 ml) UD INH STA (01:41)
[2017-09-01] MEDS ORDERED: Albuterol-Ipratrop 3 mg / 0.5 (3 ml) UD ONE (02:06)
--- NOTE | 2017-09-01 02:09 | ED PDOC ---
HPI: SOB/CHF/COPD Time Seen by Provider: 09/01/17 01:25 Chief Complaint (Nursing): Shortness Of Breath Chief Complaint (Provider): Shortness Of Breath History Per: Patient History/Exam Limitations: no limitations Onset/Duration Of Symptoms: Days (x 3) Current Symptoms Are (Timing): Still Present Additional Complaint(s): 67 year old woman with history of diabetes, obesity and hypertension brought to the ED by EMS complaining of shortness of breath and cough, onset 3 days ago. She reports taking amoxicillin that she was given for a tooth infection. The cough is not improving. Patient has previously had pneumonia but said that the symptoms are better than when she was diagnosed. Patient reports she gets the sweats sometimes. Denies fever, chills and chest pain. PMD: Past Medical History Reviewed: Historical Data, Nursing Documentation, Vital Signs Vital Signs: Last Vital Signs Temp 98.2 F 09/01/17 04:48 Pulse 90 09/01/17 04:48 Resp 19 09/01/17 04:48 BP 140/82 09/01/17 04:48 Pulse Ox 96 09/01/17 04:48 - Medical History PMH: Diabetes (type II), Diverticulitis, Gall Bladder Disease (cholecystectomy) , HTN, Hypercholesterolemia Denies: Deep Vein Thrombosis, Chronic Kidney Disease - Surgical History Surgical History: Cholecystectomy - Family History Family History: States: Unknown Family Hx - Home Medications Home Medications: Ambulatory Orders Medication Instructions Recorded Atorvastatin [Lipitor] 10 mg PO HS 06/29/16 Ranitidine HCl [Zantac] 150 mg PO DAILY 06/29/16 metFORMIN [glucOPHAGE] 500 mg PO BID 06/29/16 traMADol [Ultram] 50 mg PO TID PRN 3 Days tab 12/11/16 ALPRAZolam [Xanax] 0.25 mg PO DAILY PRN #5 tab 02/08/17 Benzocaine/Menthol [Cepacol Sore 1 yolis PO Q6H PRN #30 yolis 02/08/17 Throat] Cefpodoxime [Vantin] 200 mg PO Q12 #10 tab 02/08/17 Famotidine [Pepcid] 20 mg PO DAILY #30 tab 02/08/17 Lactobacillus Acidophilus [Bacid 1 cap PO BID #10 cap 02/08/17 Acidophilus] Lisinopril [Zestril] 40 mg PO DAILY #30 tab 02/08/17 Promethazine/Codeine 5 ml PO Q6 PRN #14 02/08/17 [Phenergan/Codeine Oral Syrup] Prednisone [Deltasone] 40 mg PO DAILY #3 tablet 09/01/17 Promethazine [Phenergan Tab] 25 mg PO BID #15 tab 09/01/17 - Allergies Allergies/Adverse Reactions: Allergies Allergy/AdvReac Type Severity Reaction Status Date / Time almond Allergy RASH Verified 02/06/17 16:04 peanut Allergy RASH Verified 02/05/17 03:21 Sulfa (Sulfonamide Allergy RASH Verified 02/05/17 03:21 Antibiotics) latex AdvReac RASH Verified 02/05/17 03:21 apple juice Allergy RASH Uncoded 06/29/16 12:11 blueberries Allergy RASH Uncoded 06/29/16 12:11 raspberries Allergy RASH Uncoded 06/29/16 12:11 shellfish Allergy RASH Uncoded 06/29/16 12:11 strawberries Allergy RASH Uncoded 06/29/16 12:11 tuna Allergy RASH Uncoded 06/29/16 12:11 Review of Systems ROS Statement: Except As Marked, All Systems Reviewed And Found Negative Constitutional: Positive for: Sweats (sometimes). Negative for: Fever, Chills Cardiovascular: Negative for: Chest Pain Respiratory: Positive for: Cough, Shortness of Breath Physical Exam - Reviewed Nursing Documentation Reviewed: Yes Vital Signs Reviewed: Yes - Physical Exam Appears: Positive for: Non-toxic, No Acute Distress Head Exam: Positive for: ATRAUMATIC, NORMOCEPHALIC Skin: Positive for: Normal Color, Warm, Dry Eye Exam: Positive for: Normal appearance, PERRL Neck: Positive for: Normal, Painless ROM, Supple Cardiovascular/Chest: Positive for: Regular Rate, Rhythm. Negative for: Murmur Respiratory: Positive for: Normal Breath Sounds. Negative for: Wheezing Gastrointestinal/Abdominal: Positive for: Normal Exam, Soft Back: Positive for: Normal Inspection. Negative for: L CVA Tenderness, R CVA Tenderness, Vertebral Tenderness Extremity: Positive for: Normal ROM. Negative for: Tenderness Neurologic/Psych: Positive for: Alert, Oriented. Negative for: Motor/Sensory Deficits - Laboratory Results Result Diagrams: 09/01/17 02:05 12/28/17 02:05 - ECG O2 Sat by Pulse Oximetry: 95 (RA) Pulse Ox Interpretation: Normal Medical Decision Making Medical Decision Making: Time: 01:40 Impression: URI vs bronchospasm vs influenza Initial Plan: --VBG shock panel --EKG --BMP --Troponin --CBc --Chest x-ray --Duoneb 3 mg INH --Normal Saline IV 1,000 mls/ hr --Peak Flow pre/post --Influenza A B Time: 02:01 Chest X-ray FINDINGS: The mediastinal cardiac silouette is normal in size. The interstitial markings appear slightly more prominent bilaterally than on prior however no focal infiltrate is identified. No effusions are identified. The osseous structures are normal. IMPRESSION: No acute findings. Time: 02:05 Influenza A B --results are negative. 430 Pt. is feeling much better, vitals significantly improved, states her breathing has significantly improved. Repeat lactate is better than prior. Pt. requesting promethazine for cough. Encouraged patient to f/u w/ PMD in 1 - 2 days, return precautions discussed. Scribe Attestation: Documented by Maggy Leon, acting as a scribe for Garcia Nguyen MD Provider Scribe Attestation: All medical record entries made by the Scribe were at my direction and personally dictated by me. I have reviewed the chart and agree that the record accurately reflects my personal performance of the history, physical exam, medical decision making, and the department course for this patient. I have also personally directed, reviewed, and agree with the discharge instructions and disposition. Disposition - Clinical Impression Clinical Impression: Bronchospasm, Upper respiratory infection - Disposition Referrals: Luis Gomes MD [Staff Provider] - Disposition: Routine/Home Disposition Time: 04:52 Condition: IMPROVED Prescriptions: Prednisone [Deltasone] 40 mg PO DAILY #3 tablet Promethazine [Phenergan Tab] 25 mg PO BID #15 tab Instructions: Bronchospasm (DC), Upper Respiratory Infection (ED) Forms: [employer] (Ethiopian)
[2017-09-01 02:10] LABS: VENOUS BLOOD GAS BASE EXCESS 3.6 mmol/L (0.0-2.0); VENOUS BLOOD GAS PCO2 52 mmHg (40-60); VENOUS BLOOD GAS PO2 34 mm/Hg (30-55); VENOUS BLOOD PH 7.37 (7.32-7.43)
[2017-09-01] MEDS ORDERED: Sodium Chloride 0.9% 1,000 ML IV STA (02:12)
[2017-09-01 02:19] LABS: BASO # 0.1 K/uL (0.0-0.2); BASO % 0.6 % (0.0-2.0); EOS # 0.4 K/uL (0.0-0.7); EOS % 4.9 % (0.0-4.0); HEMOGLOBIN 13.2 g/dL (12.0-16.0); LYMPH # 1.9 K/uL (1.0-4.3); LYMPH % 21.8 % (20.0-40.0); MEAN CELL VOLUME 88.1 fl (81.0-99.0); MEAN CORPUSCULAR HEMOGLOBIN 29.5 pg (27.0-31.0); MEAN CORPUSCULAR HGB CONC 33.5 g/dL (33.0-37.0); MONO # 0.7 K/uL (0.0-0.8); MONO % 7.8 % (0.0-10.0); NEUT # 5.7 K/uL (1.8-7.0); NEUT % 64.9 % (50.0-75.0); NRBC % 0.1 % (0.0-0.0); RBC 4.48 Mil/uL (3.80-5.20); RED CELL DISTRIBUTION WIDTH 14.4 % (11.5-14.5); WHITE BLOOD COUNT 8.8 K/uL (4.8-10.8)
--- NOTE | 2017-09-01 02:29 | RAD ---
EXAM: XR Chest, 2 Views EXAM DATE/TIME: 09/01/2017 1:41 AM CLINICAL HISTORY: 67 years old, female; Signs and symptoms; Shortness of breath; Additional info: SOB, HX of pna TECHNIQUE: Frontal and lateral views of the chest. COMPARISON: CR - CHEST TWO VIEWS (PA/LAT) 2017-02-08 10:28 FINDINGS: The mediastinal cardiac silouette is normal in size. The interstitial markings appear slightly more prominent bilaterally than on prior however no focal infiltrate is identified. No effusions are identified. The osseous structures are normal. IMPRESSION: No acute findings.
[2017-09-01 02:32] LABS: BLOOD UREA NITROGEN 19 mg/dl (7-17); CALCIUM 9.4 mg/dL (8.4-10.2); GFR AFRICAN-AMERICAN > 60; GFR NON-AFRICAN AMERICAN > 60
[2017-09-01 02:51] VITALS: RESP 19
[2017-09-01 04:49] VITALS: BP 140/82; PULSE 90; TEMP 98.2
[2017-09-01 04:53] VITALS: O2SAT 95
--- NOTE | 2017-09-01 08:44 | CARD ---
APPROVED REPORT EKG Measurement Heart [id number] <Conclusion> Sinus tachycardia Left axis deviation Cannot rule out Anterior infarct, age undetermined Abnormal ECG
== END 2017-09-01 04:59 | disposition home or self-care (01) ==
LOC: H.ER 01:12
DX: J06.9 Acute upper respiratory infection, unspecified (principal); J98.01 Acute bronchospasm; E11.9 Type 2 diabetes mellitus without complications; E66.9 Obesity, unspecified; E78.00 Pure hypercholesterolemia, unspecified; I10 Essential (primary) hypertension; Z79.84 Long term (current) use of oral hypoglycemic drugs; Z90.49 Acquired absence of other specified parts of digestive tract
CPT/HCPCS: 71020; 80048; 82803; 83605; 84484; 85025; 87804; 93005; 94640; 96360; 99282; J7040

== ENCOUNTER 2018-09-18 13:59 | Emergency (ER) | payer MEDICARE ==
[2018-09-18 13:59] VITALS: BMI 46.3
[2018-09-18 14:13] VITALS: RESP 18; TEMP 98.8
--- NOTE | 2018-09-18 14:32 | ED PDOC ---
HPI: General Adult Time Seen by Provider: 09/18/18 14:16 Chief Complaint (Nursing): Chest Pain Chief Complaint (Provider): Abdominal Pain History Per: Patient History/Exam Limitations: no limitations Onset/Duration Of Symptoms: Days (x1) Current Symptoms Are (Timing): Better Additional Complaint(s): 68 year old female with a past medical history of hypertension and diabetes who is presenting to the ED for evaluation of epigastric pain onset yesterday after eating a hot dog. Patient denies any nausea or vomiting and she reports that the pain has since improved. She states that she was referred here by PMD for EKG and cardiac workup. Patient offers no other medical complaints at this time. PMD: Luis Gomes Past Medical History Reviewed: Historical Data, Nursing Documentation, Vital Signs Vital Signs: Last Vital Signs Temp 98.8 F 09/18/18 14:03 Pulse 78 09/18/18 14:03 Resp 18 09/18/18 14:03 BP 154/97 H 09/18/18 14:03 Pulse Ox 99 09/18/18 14:03 - Medical History PMH: Diabetes (type II), Diverticulitis, Gall Bladder Disease (cholecystectomy), HTN, Hypercholesterolemia Denies: Deep Vein Thrombosis, Chronic Kidney Disease - Surgical History Surgical History: Cholecystectomy - Family History Family History: States: Unknown Family Hx - Social History Current smoker - smoking cessation education provided: No Alcohol: None Drugs: Denies - Home Medications Home Medications: Ambulatory Orders Medication Instructions Recorded Atorvastatin [Lipitor] 10 mg PO HS 06/29/16 Ranitidine HCl [Zantac] 150 mg PO DAILY 06/29/16 metFORMIN [glucOPHAGE] 500 mg PO BID 06/29/16 traMADol [Ultram] 50 mg PO TID PRN 3 Days tab 12/11/16 ALPRAZolam [Xanax] 0.25 mg PO DAILY PRN #5 tab 02/08/17 Benzocaine/Menthol [Cepacol Sore 1 yolis PO Q6H PRN #30 yolis 02/08/17 Throat] Cefpodoxime [Vantin] 200 mg PO Q12 #10 tab 02/08/17 Famotidine [Pepcid] 20 mg PO DAILY #30 tab 02/08/17 Lactobacillus Acidophilus [Bacid 1 cap PO BID #10 cap 02/08/17 Acidophilus] Lisinopril [Zestril] 40 mg PO DAILY #30 tab 02/08/17 Promethazine/Codeine 5 ml PO Q6 PRN #14 02/08/17 [Phenergan/Codeine Oral Syrup] Prednisone [Deltasone] 40 mg PO DAILY #3 tablet 09/01/17 Promethazine [Phenergan Tab] 25 mg PO BID #15 tab 09/01/17 Ciprofloxacin/Dexamethasone 4 drop AD BID #1 bottle 05/26/18 [Ciprodex 0.3%-0.1% 7.5 Ml] Naproxen 500 mg PO BID PRN #20 tab 05/26/18 - Allergies Allergies/Adverse Reactions: Allergies Allergy/AdvReac Type Severity Reaction Status Date / Time almond Allergy RASH Verified 05/26/18 17:22 peanut Allergy RASH Verified 05/26/18 17:22 Sulfa (Sulfonamide Allergy RASH Verified 05/26/18 17:22 Antibiotics) latex AdvReac RASH Verified 05/26/18 17:22 apple juice Allergy RASH Uncoded 05/26/18 17:22 blueberries Allergy RASH Uncoded 05/26/18 17:22 raspberries Allergy RASH Uncoded 05/26/18 17:22 shellfish Allergy RASH Uncoded 05/26/18 17:22 strawberries Allergy RASH Uncoded 05/26/18 17:22 tuna Allergy RASH Uncoded 05/26/18 17:22 Review of Systems ROS Statement: Except As Marked, All Systems Reviewed And Found Negative Gastrointestinal: Positive for: Abdominal Pain. Negative for: Nausea, Vomiting Physical Exam - Reviewed Nursing Documentation Reviewed: Yes Vital Signs Reviewed: Yes - Physical Exam Appears: Positive for: Non-toxic, No Acute Distress Head Exam: Positive for: ATRAUMATIC, NORMAL INSPECTION, NORMOCEPHALIC Skin: Positive for: Normal Color, Warm, DRY Eye Exam: Positive for: EOMI, Normal appearance, PERRL ENT: Positive for: Normal ENT Inspection Neck: Positive for: Normal, Painless ROM Cardiovascular/Chest: Positive for: Regular Rate, Rhythm. Negative for: Murmur Respiratory: Positive for: Normal Breath Sounds. Negative for: Respiratory Distress Gastrointestinal/Abdominal: Positive for: Normal Exam, Soft. Negative for: Tenderness, Guarding, Rebound Back: Positive for: Normal Inspection Extremity: Positive for: Normal ROM. Negative for: Deformity, Swelling Neurologic/Psych: Positive for: Alert, Oriented. Negative for: Motor/Sensory Deficits - Laboratory Results Result Diagrams: 09/18/18 14:51 09/18/18 14:51 - ECG ECG Rhythm: Positive for: Normal QRS, Normal ST Segment, Sinus Rhythm Rate: 86 O2 Sat by Pulse Oximetry: 99 (RA) Pulse Ox Interpretation: Normal Medical Decision Making Medical Decision Making: Time: 14:25 Assessment: EKG reveals normal sinus rhythm at [address] changes unlikely symptoms represent cardiac etiology --however will obtain troponins and verify negative Plan: --EKG --CMP --Troponin --CBC Scribe Attestation: Documented by Era Berry, acting as a scribe for Trace Acosta MD. Provider Scribe Attestation: All medical record entries made by the Scribe were at my direction and personally dictated by me. I have reviewed the chart and agree that the record accurately reflects my personal performance of the history, physical exam, medical decision making, and the department course for this patient. I have also personally directed, reviewed, and agree with the discharge instructions and disposition. Disposition - Clinical Impression Clinical Impression: Gastritis - Patient ED Disposition Is Patient to be Admitted: No Counseled Patient/Family Regarding: Studies Performed, Diagnosis, Need For Followup, Rx Given - Disposition Disposition: Routine/Home Disposition Time: 15:50 Condition: FAIR Instructions: Gastritis Forms: [employer] (Singaporean)
[2018-09-18 14:56] LABS: BASO # 0.1 K/uL (0.0-0.2); EOS # 0.4 K/uL (0.0-0.7); EOS % 3.3 % (0.0-4.0); HEMOGLOBIN 14.4 g/dL (12.0-16.0); LYMPH # 2.3 K/uL (1.0-4.3); LYMPH % 20.6 % (20.0-40.0); MEAN CELL VOLUME 86.8 fl (81.0-99.0); MEAN CORPUSCULAR HEMOGLOBIN 28.4 pg (27.0-31.0); MEAN CORPUSCULAR HGB CONC 32.7 g/dL (33.0-37.0); MEAN PLATELET VOLUME 8.4 fl (7.2-11.7); MONO # 0.7 K/uL (0.0-0.8); MONO % 5.8 % (0.0-10.0); NEUT # 7.8 K/uL (1.8-7.0); NEUT % 69.3 % (50.0-75.0); NRBC % 0.2 % (0.0-0.0); RBC 5.07 Mil/uL (3.80-5.20); RED CELL DISTRIBUTION WIDTH 14.7 % (11.5-14.5); WHITE BLOOD COUNT 11.3 K/uL (4.8-10.8)
[2018-09-18 15:05] LABS: BLOOD UREA NITROGEN 19 mg/dl (7-17); CALCIUM 9.8 mg/dL (8.4-10.2); GFR NON-AFRICAN AMERICAN > 60
[2018-09-18 15:11] LABS: ALB/GLOB RATIO 1.1 (1.0-2.1); ALBUMIN 4.5 g/dL (3.5-5.0); ALT/SGPT 32 U/L (9-52); AST/SGOT 41 U/L (14-36)
[2018-09-18 15:58] VITALS: BP 138/82; PULSE 82; O2SAT 98
--- NOTE | 2018-09-18 17:59 | CARD ---
APPROVED REPORT Date of service: 09/18/2018 EKG Measurement Heart [id number] <Conclusion> Normal sinus rhythm Left axis deviation Abnormal ECG CPT R wave progression has improved
== END 2018-09-18 16:01 | disposition home or self-care (01) ==
LOC: H.ER 13:59
DX: K29.70 Gastritis, unspecified, without bleeding (principal); I10 Essential (primary) hypertension; E11.9 Type 2 diabetes mellitus without complications; Z79.84 Long term (current) use of oral hypoglycemic drugs; Z90.49 Acquired absence of other specified parts of digestive tract

== ENCOUNTER 2018-11-27 08:02 | Day surgery (SDC) | payer MEDICARE, OTHER ==
[2018-11-27] MEDS ORDERED: Lactated Ringer's 500 ML IV ONE (08:44)
[2018-11-27 08:47] VITALS: BMI 44.6
[2018-11-27 11:42] VITALS: BP 115/47; PULSE 104; RESP 16; TEMP 99.1; O2SAT 96
== END 2018-11-27 12:05 | disposition home or self-care (01) ==
LOC: H.ENDO 08:02
PROVIDERS: ATTEND Internal Medicine Gastroenterology
DX: K64.8 Other hemorrhoids (principal); K57.30 Diverticulosis of large intestine without perforation or abscess without bleeding; R93.3 Abnormal findings on diagnostic imaging of other parts of digestive tract; E11.9 Type 2 diabetes mellitus without complications; E78.5 Hyperlipidemia, unspecified; I10 Essential (primary) hypertension; G47.33 Obstructive sleep apnea (adult) (pediatric); E66.9 Obesity, unspecified
CPT/HCPCS: 45378; J7120